=== PATIENT | male | born 1995 | race Two or more races ===

== ENCOUNTER 2020-12-02 12:58 | Emergency (ER) | payer OTHER ==
[~2020-12-02] VITALS: Ht 157.5 cm; Wt 61.2 kg
[2020-12-02] MEDS ORDERED: Lidocaine 1% 10mg/ml/Epi 0.005mg/ml 30ml vial INJ ONE (13:45)
[2020-12-02] MEDS ORDERED: Bacitracin Oint UD TOPIC ONE (13:45)
[2020-12-02] MEDS ORDERED: Tetanus/Diptheria/Pertussis IM ONE (13:45)
[2020-12-02] MEDS ORDERED: Acetaminophen 500mg (ES) tab ORAL ONE (13:45)
--- NOTE | 2020-12-02 13:48 | Emergency Room Report ---
History of Present Illness General Chief Complaint: Laceration Source: Patient Present Illness HPI Patient sliced off the tip of his left index finger while working. There has been some bleeding. He complains about pain. He is not sure when his last tetanus shot was. He is right-handed. Pain rated 8/10, sharp and throbbing. Patient denies medical problems. Allergies: Coded Allergies: No Known Allergies (Unverified , 12/02/20) COVID-19 Screening Contact w/high risk pt: No Experienced COVID-19 symptoms?: No COVID-19 Testing performed PROJECT CONTROL MANAGER: No Patient History Past Medical History: see triage record Social History: Denies: smoking Social History Narrative works in a kitchen Reviewed Nursing Documentation: PMH: Agreed; PSxH: Agreed Nursing Documentation-PMH Past Medical History: No Stated History Review of Systems Constitutional: Denies: fever Musculoskeletal: Reports: see HPI Skin: Reports: see HPI Neurological: Reports: see HPI Hematologic/Lymphatic: Reports: see HPI Physical Exam Vital Signs Date Time Temp Pulse Resp B/P (MAP) Pulse Ox O2 Delivery O2 Flow Rate FiO2 12/02/20 13:32 97.9 76 18 120/80 (93) 98 Room Air Sp02 EP Interpretation: reviewed, normal General Appearance: well appearing, no apparent distress, GCS 15 Head: normocephalic Eyes: bilateral eye normal inspection, bilateral eye PERRL ENT: other Neck: normal inspection - Renal mask, full range of motion Respiratory: normal inspection Cardiovascular #1: regular rate, rhythm Cardiovascular #2: 2+ radial (L) - Apley refill Gastrointestinal: normal inspection Musculoskeletal: gait/station normal Neurologic: alert, grossly normal Psychiatric: mood/affect normal Skin: no rash, warm/dry, other - Avulsion/amputation of distal radial side of index finger approximately 1/2 cm long with some oozing. Procedures Laceration/Wound Repair Laceration/Wound Repair : Consent: Verbal Wound Location: upper extremity - L index finger Wound's Depth, Shape: superficial Wound Length (cm): 1 - 0.6 cm length Wound Explored: clean Irrigated w/ Saline (ccs): 50 Betadine Prep?: Yes Anesthesia: 1% Lidocaine, Lidocaine w/ Epi - topically Wound Debrided: None Sling Applied?: No Patient Tolerated: Well Progress Soaked in lidocaine and epi. Cleaned and irrigated. Local 1% lido without used with cautery. Bleeding controlled. Dressed with Xeroform/bacitracin and tube gauze. Tolerated well. Medical Decision Making Diagnostic Impression: Primary Impression: Avulsion left index finger ER Course Patient presents with an avulsion/amputation of his left index finger. Tetanus is indicated. Tylenol will be given. The wound will be soaked in lidocaine with epinephrine and cauterized. See procedure note. Discussed follow up with patient. Stable for outpatient treatment and follow up. (After d/c, senior mechanical project manager called to clarify treatment plan. She plans to have the patient return to ED for follow up care.) Last Vital Signs Date Time Temp Pulse Resp B/P (MAP) Pulse Ox O2 Delivery O2 Flow Rate FiO2 12/02/20 15:00 97.9 18 120/80 98 Room Air 12/02/20 13:32 76 Status: improved Disposition: HOME, SELF-CARE Condition: Improved Scripts Bacitracin (Bacitracin) 28.4 Gm Oint...g. 1 APPLIC TOPIC BID, #20 GM Prov: Frank Stephens MD 12/02/20 Ibuprofen* (MOTRIN*) 600 Mg Tablet 600 MG ORAL Q6H PRN for FOR PAIN, #20 TAB 0 Refills Prov: Frank Stephens MD 12/02/20 Frank Stephens MD Dec 02, 2020 13:48
[2020-12-02] MEDS ORDERED: Lidocaine 1% 10mg/ml/Epi 0.005mg/ml 10ml INJ ONE (13:58)
--- NOTE | 2020-12-02 14:00 | NUR ---
CAME TO er complaints of laceration to left index finger while cutting things at work
--- NOTE | 2020-12-02 14:30 | NUR ---
meds given as orderd wound care done waiting for md to suture the finger
[2020-12-02] MEDS ORDERED: Lidocaine 1% MPF 10mg/ml 5ml INJ ONE (14:45)
[2020-12-02] MEDS ORDERED: BACITRACIN15 GM TOPIC (14:58)
[2020-12-02] MEDS ORDERED: IBUPROFEN600 M1 ORAL (14:58)
[2020-12-02 15:00] VITALS: BP 120/80
--- NOTE | 2020-12-02 15:04 | NUR ---
discharged with instruction and rx follow up with work com
== END 2020-12-02 15:21 | disposition home or self-care (01) ==
LOC: EMR 13:54
DX: S68.621A Partial traumatic transphalangeal amputation of left index finger, initial encounter (principal); W45.8XXA Other foreign body or object entering through skin, initial encounter; Y93.89 Activity, other specified; Y92.9 Unspecified place or not applicable
CPT/HCPCS: 90471; 90715; 99283